=== PATIENT | female | born 1940 | race Caucasian/White ===

== ENCOUNTER 2022-12-30 13:06 | Observation (INO) ==
[2022-12-30 14:42] LABS: Basophils # (auto) 0.04 K/uL (0-0.2); Basophils % (auto) 0.3 %; Eosinophils # (auto) 0.48 K/uL (0-0.50); Hematocrit (blood only) 34.3 % (37.0-47.0); Hemoglobin 11.3 g/dl (12.0-16.0); Immature Granulocytes # (auto) 0.05 K/uL (0.01-0.20); Immature Granulocytes % (auto) 0.4 %; Lymphocytes # (auto) 1.06 K/uL (1.2-3.4); Lymphocytes % (auto) 8.8 %; Mean Corpuscular Hgb Conc 32.9 g/dL (32.0-36.0); Mean Corpuscular Volume 100.3 fL (80.0-100.0); Mean Platelet Volume 10.5 fL (9.4-12.4); Monocytes # (auto) 0.79 K/uL (0.11-0.59); Monocytes % (auto) 6.6 %; Neutrophils # (auto) 9.59 K/uL (1.40-6.50); Neutrophils % (auto) 79.9 %; Platelet Count 336 K/uL (130-400); RDW Coefficient of Variation 12.7 % (11.5-14.5); RDW Standard Deviation 46.5 fL (36.4-46.3); Red Blood Count 3.42 M/uL (4.20-5.40); White Blood Count 12.01 K/ul (4.8-10.8)
[2022-12-30 14:57] LABS: Albumin Globulin Ratio 1.3 (0.9-2); BUN Creatinine Ratio 30.6 (10-20); Bilirubin,Total 0.4 mg/dl (0.2-1.0); Calcium 9.6 mg/dl (8.6-10.3); Creatinine Clr Calc Pharmacy 28.1 ml/min; Est GFR (African American) 47.9 ml/min; Est GFR (Non-African American) 41.3 ml/min; Globulin 3.2 gm/dl (2.5-4.0); Total Protein 7.2 gm/dl (6.0-8.3)
[2022-12-30 15:07] LABS: Partial Thromboplastin Time 28.2 Seconds (21.0-31.0); Prothrombin Time 10.9 Seconds (9.0-12.0)
[2022-12-30 15:21] LABS: Troponin I High Sensitivity 79.9 pg/ml (0-14)
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
--- NOTE | 2022-12-30 16:00 | Electrocardiogram Report ---
Test Reason : Blood Pressure : / mmHG Vent. Rate : 070 BPM Atrial Rate : 070 BPM P-R Int : 136 ms QRS Dur : 120 ms QT Int : 414 ms P-R-T Axes : 047 063 044 degrees QTc Int : 447 ms Normal sinus rhythm Right bundle branch block Abnormal ECG No previous ECGs available Confirmed by Rocky Pimentel ([id number]) on 12/30/2022 3:59:59 PM Referred By: Confirmed By:Rocky Pimentel
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
[2022-12-30] MEDS ORDERED: ACETAMINOPHEN 325 MG TAB PO PRN (19:00)
[2022-12-30] MEDS ORDERED: ONDANSETRON INJ 2 MG/ML 2 ML VIAL IV PRN (19:00)
[2022-12-30] MEDS ORDERED: QUEtiapine FUMARATE 25 MG TABLET PO SCH (20:00)
[2022-12-30] MEDS ORDERED: SIMVASTATIN 40 MG TAB PO SCH (20:00)
[2022-12-30] MEDS: SODIUM CHLORIDE 0.9% 1000ML 1,000 ML IV SCH (20:28)
[2022-12-30] MEDS: CALCIUM CARBONATE 1250MG TAB PO SCH (20:51)
[2022-12-30] MEDS ORDERED: MIRTAZAPINE TAB 15 MG TAB PO SCH (21:00)
[2022-12-30] MEDS ORDERED: OPTIRAY 320 100ml IV ONE (22:00)
--- NOTE | 2022-12-30 23:27 | CT Scan Report ---
Exam(s): CT ABDOMEN + PELVIS With Contrast Oral - High Density Amt: GASTRO , IV Amt: 93ML EXAM: CT Abdomen and Pelvis With Intravenous Contrast CLINICAL HISTORY: Reason for exam: r/o colitis. TECHNIQUE: Axial computed tomography images of the abdomen and pelvis with intravenous contrast. CTDI is 10.46 mGy and DLP is 520.69 mGy-cm. Automated exposure control was utilized for the study. A dose lowering technique was utilized adhering to the principles of ALARA. CONTRAST: Patient received GASTRO of Oral - High Density and 93ML of IV contrast COMPARISON: No relevant prior studies available. FINDINGS: Lung bases: Atelectasis at the lung bases. ABDOMEN: Liver: Unremarkable. No mass. Gallbladder and bile ducts: Unremarkable. No calcified stones. No ductal dilation. Pancreas: Unremarkable. No mass. No ductal dilation. Spleen: Unremarkable. No splenomegaly. Adrenals: Unremarkable. No mass. Kidneys and ureters: Unremarkable. No hydronephrosis or delayed nephrogram. Stomach and bowel: Fluid-filled small bowel which is mildly better, correlate for mild enteritis/ileus. No obstruction. PELVIS: Appendix: No secondary signs of acute appendicitis. Bladder: Decompressed urinary bladder. Reproductive: Unremarkable as visualized. ABDOMEN and PELVIS: Intraperitoneal space: Mild free fluid in the pelvis. No free air. Bones/joints: Right hip ORIF. Degenerative changes of the spine. No acute fracture. No dislocation. Soft tissues: Unremarkable. Vasculature: Atherosclerotic changes of the aorta. No abdominal aortic aneurysm. Lymph nodes: Unremarkable. No enlarged lymph nodes. IMPRESSION: 1. No hydronephrosis or delayed nephrogram. 2. No secondary signs of acute appendicitis. 3. Mild free fluid in the pelvis. 4. Fluid-filled small bowel which is mildly better, correlate for mild enteritis/ileus. Electronically signed by: Rush Shrestha MD 12/30/22 23:26 PM
[2022-12-31 01:30] LABS: Adenovirus F 40/41 PCR Not Detected (NotDetected); Astrovirus PCR Not Detected (NotDetected); Campylobacter PCR Not Detected (NotDetected); Cryptosporidium PCR Not Detected (NotDetected); Cyclospora cayetanensis PCR Not Detected (NotDetected); Entamoeba histolytica PCR Not Detected (NotDetected); Enteroaggregative E.coli(EAEC) Not Detected (NotDetected); Enteropathogenic E.coli (EPEC) Not Detected (NotDetected); Enterotoxigenic E.coli (ETEC) Not Detected (NotDetected); Giardia lamblia PCR Not Detected (NotDetected); Norovirus GI/GII PCR Not Detected (NotDetected); Plesiomonas shigelloides PCR Not Detected (NotDetected); Rotavirus A PCR Not Detected (NotDetected); Salmonella PCR Not Detected (NotDetected); Sapovirus PCR Not Detected (NotDetected); Shiga-like Toxin E.coli (STEC) Not Detected (NotDetected); Shigella/Enteroinvasive E.coli Not Detected (NotDetected); Vibrio cholerae PCR Not Detected (NotDetected); Vibrio species PCR Not Detected (NotDetected); Yersinia enterocolitica PCR Not Detected (NotDetected)
[2022-12-31] MEDS ORDERED: LEVOTHYROXINE SODIUM 200 MCG TABLET PO SCH (06:30)
[2022-12-31 08:58] LABS: Appearance Urine Clear (Clear); Bilirubin Urine Negative (Negative); Blood Urine Negative (Negative); Color Urine Yellow; Glucose Urine UA Negative (Negative); Ketones Urine Negative (Negative); Leukocyte Esterase Urine 1+ (Negative); Nitrite Urine Negative (Negative); Protein Urine Negative (Negative); Specific Gravity Urine > 1.045 (1.000-1.030); Urobilinogen Urine Negative (Negative)
[2022-12-31] MEDS ORDERED: CHOLECALCIFEROL 1,000 UNITS 25 MCG TAB PO SCH (09:00)
[2022-12-31] MEDS ORDERED: lisinopril 5 MG TAB PO SCH (09:00)
[2022-12-31] MEDS ORDERED: PYRIDOXINE HCL 50 MG TAB PO SCH (09:00)
[2022-12-31] MEDS ORDERED: carBAMazepine 200 MG TABLET PO SCH (09:00)
[2022-12-31] MEDS ORDERED: MEMANTINE HCL 5 MG TAB PO SCH (09:00)
[2022-12-31] MEDS ORDERED: OXYBUTYNIN CHLORIDE XL 5 MG TABCR PO SCH (09:00)
[2022-12-31] MEDS ORDERED: SERTRALINE HCL 100 MG TABLET PO SCH (09:00)
[2022-12-31 09:13] LABS: Calcium Oxalate Crystals Urine Present (None Prsent); RBC Urine Automated 0-4 /hpf (0-4)
[2022-12-31 09:14] LABS: Bacteria Urine Automated 1+ (Negative)
--- NOTE | 2022-12-31 09:27 | Hospitalist Progress Note ---
Date of Service December 31, 2022 Assessment & Plan (1) Diarrhea: Plan: Two episodes of loose stool overnight. H/H stable. Hemodynamically stable. She has no evidence of GI bleeding. (2) Elevated troponin: (3) Syncope: Plan This is a 82-year-old female who has a significant past medical history of learning disability, mood disorder, depression with anxiety, dementia, HTN, HLD, hypothyroidism, history of colitis and vitamin D deficiency who presents to ED secondary to diarrhea x5 days. Diarrhea Leukocytosis admitted to telemetry-->no events overnight. staff at care home concerned due to diarrhea x 5 days as well as concern for possible noticing blood on bed pad this am. Stool culture is negative and she had only two episodes of soft stool here. Mg was replaced and will continue oral supplementation. K was 3.3 and replaced. Hemeoccult stool negative in ED No evidence of blood per rectum overnight Patient with chronic constipation at baseline on lactulose and Colace which has been on hold for the past 3 days Patient with history of colitis will obtain ct a/p. Some evidence of possible enteritis with unclear cause. Rehydrated overnight. Cont supportive care with Gatorade and other electrolyte rich drinks and oral rehydration. continue to hold lactulose and docusate Elevated troponin Patient without chest pain or shortness of breath EKG without ischemic findings Echo as noted above. Defer to PCP for any further workup for risk stratification of CAD as needed. Syncope One episode prior to arrival related to having a BM. Workup as above was unremarkable and a carotid ultrasound was unremarkable today. Per record review it does appear that this has been evaluated in the past Typically symptoms occur when straining with bowel movement, but staff at bedside states that she also had one recently that was at rest Previously followed [facility] neurology for the this There was concern about possible NPH due to MRI done that revealed ventriculomegaly She was evaluated by [facility] neurosurgery who felt symptoms are not consistent with NPH, but were to review further record Cont outpatient followup as planned. Bacteriuria/possible UTI uncertain if UTI may be playing a role. There is bacteruria present, however, patient is an unreliable historian. Will order a short course of cefdinir. Followup with primary care provider. Acute renal insufficiency unknown baseline cr bun/cr 37 and 1.21 with elevated ratio likely in setting of volume depletion with dehydration Rehydrated overnight with improvement in creatinine to 1.1. Cont staying hydrated until diarrheal illness resolves. She is tolerating PO. Anemia hgb 11. unknown etiology Iron saturation is 44%, no evidence of iron deficiency. Defer to outpatient followup. Intellectual delay Mood disorder Depression with anxiety Dementia Follows [facility] neurology continue carbamazepine, mirtazapine, quetiapine and sertraline Chronic, stable. Mentating at baseline. Hypertension Continue lisinopril Chronic, stable Hyperlipidemia Continue statin Chronic, stable DVT prophylaxis: SCDs Full code Dispo-return to home. Cont to stay hydrated. Follow-up with primary care physician in one week. I spent a total of 60minutes coordinating, documenting, and providing care for this patient excluding time spent in the performance of separately billed services Delma Bennett DO [place] Hospitalist Admission and Anticipated Discharge Date Admission Date: December 30, 2022 Subjective 82 yo F presents with report of diarrhea for several weeks and questionable blood in her stool. Today she feels ready to return home. She had two episodes of loose stool overnight that was checked and not infectious She remains afebrile Telemetry review overnight is unremarkable. She denies abdominal pain and is eating without issue. She remains hemodynamically stable. Elevated troponin without rise with trend overnight. Echo resulted with mild concentric LVH, no regional wall motion abnormalities, EF 65-70%, mild aortic valve sclerosis without significant aortic stenosis and grade I diastolic dysfunction. She continues to deny chest pain or shortness of breath. Electrolytes this morning revealed a Mg 1.6 and K 3.3. Replacement was given. Review of Systems Review of Systems: All systems were reviewed and negative except as indicated on subjective above. Physical Exam Physical Exam: CONSTITUTIONAL: WNWD, vitals as above, generally well-appearing, NAD EYES: normal conjunctivae, no scleral icterus ENT: external ear and nose normal, MMM NECK: trachea midline RESPIRATORY: clear to auscultation bilaterally, no crackles, rales or wheezes, normal respiratory effort CARDIOVASCULAR: regular rate and rhythm, S1 and 2 heard without murmurs, gallops or rubs, no JVD, no peripheral edema CHEST: inspection of chest was normal GASTROINTESTINAL: soft, nontender, ND, no guarding MUSCULOSKELETAL: strength 5/5 throughout, head is normocephalic and atraumatic SKIN: warm and dry NEUROLOGIC: CN 2-12 grossly intact, no sensory deficit, normal cognition, normal speech, no tremor PSYCHIATRIC: alert cooperative and oriented to person, place and time. Euthymic mood, makes good eye contact, language grossly intact, recent and remote memory grossly intact. Results & Data Results & Data Vital Signs (Past 12 Hours) Vital Signs Temp Pulse Pulse Resp BP Pulse Ox Pulse Ox 12/31/22 07:47 36.8 C 72 18 154/68 H 95 12/31/22 07:43 69 12/31/22 02:58 36.6 C 72 18 181/72 H 97 12/31/22 01:31 77 144/77 H 12/30/22 23:53 36.7 C 77 18 196/69 H 95 12/30/22 22:39 79 95 12/30/22 22:39 95 O2 Del Method O2 Del Method 12/31/22 07:47 Room Air 12/31/22 07:43 12/31/22 02:58 Room Air 12/31/22 01:31 12/30/22 23:53 Room Air 12/30/22 22:39 Room Air 12/30/22 22:39 Room Air Laboratory Results 12/31/22 12/30/22 12/30/22 Range/Units 08:41 23:45 23:45 WBC (4.8-10.8) K/ul RBC (4.20-5.40) M/uL Hgb (12.0-16.0) g/dl Hct (37.0-47.0) % MCV (80.0-100.0) fL MCH (25.0-34.0) pg MCHC (32.0-36.0) g/dL RDW Std Deviation (36.4-46.3) fL RDW Coeff of Cali (11.5-14.5) % Plt Count (130-400) K/uL MPV (9.4-12.4) fL Immature Gran % (Auto) % Neut % (Auto) % Lymph % (Auto) % Carbon % (Auto) % Eos % (Auto) % Baso % (Auto) % Neut # (Auto) (1.40-6.50) K/uL Lymph # (Auto) (1.2-3.4) K/uL Carbon # (Auto) (0.11-0.59) K/uL Eos # (Auto) (0-0.50) K/uL Baso # (Auto) (0-0.2) K/uL Immature Gran # (Auto) (0.01-0.20) K/uL PT (9.0-12.0) Seconds INR (0.9-1.1) APTT (21.0-31.0) Seconds PTT Ratio Sodium (136-145) mmol/L Potassium (3.5-5.1) mmol/L Chloride (98-107) mmol/L Carbon Dioxide (21-32) mmol/L Anion Gap (3-11) BUN (6-23) mg/dl Creatinine (0.6-1.2) mg/dl Est Cr Clr Drug Dosing ml/min Est GFR ( Amer) ml/min Est GFR (Non-Af Amer) ml/min BUN/Creatinine Ratio (10-20) Glucose (70-99(Fasting)) mg/dl Calcium (8.6-10.3) mg/dl Total Bilirubin (0.2-1.0) mg/dl AST (13-39) U/L ALT (7-52) U/L Alkaline Phosphatase (34-104) U/L Troponin I High Sens (0-14) pg/ml Total Protein (6.0-8.3) gm/dl Albumin (3.4-5.0) gm/dl Globulin (2.5-4.0) gm/dl Albumin/Globulin Ratio (0.9-2) Lipase (11-82) U/L Urine Color Yellow Urine Appearance Clear (Clear) Urine pH 5.0 (4.5-7.5) Ur Specific Dixon > 1.045 H (1.000-1.030) Urine Protein Negative (Negative) Urine Glucose (UA) Negative (Negative) Urine Ketones Negative (Negative) Urine Blood Negative (Negative) Urine Nitrite Negative (Negative) Urine Bilirubin Negative (Negative) Urine Urobilinogen Negative (Negative) Ur Leukocyte Esterase 1+ H (Negative) Urine WBC (Auto) 10-30 H (0-5) /hpf Urine RBC (Auto) 0-4 (0-4) /hpf U Hyaline Cast (Auto) 1-5 (0-5) /lpf U Epithel Cells (Auto) 10-20 H (0-5) /lpf Urine Bacteria (Auto) 1+ H (Negative) Calcium Oxalate Crystal Present A (None Prsent) Urine Yeast Not Reportable POC Stool Occult Blood (Negative) Stl C. cayetanensis PCR Not Detected (NotDetected) Stool Rotavirus A PCR Not Detected (NotDetected) Stl Adenov F 40/41 PCR Not Detected (NotDetected) Stool Astrovirus (PCR) Not Detected (NotDetected) Stool Campylobacter PCR Not Detected (NotDetected) Stl C. diff Tox B Gene Negative Cdiff Gene (Neg) Stool Cryptosporidium PCR Not Detected (NotDetected) Stl E.coli Shiga Tox PCR Not Detected (NotDetected) Stl Enterotoxigenic E PCR Not Detected (NotDetected) Stool EPEC (PCR) Not Detected (NotDetected) Stool EAEC (PCR) Not Detected (NotDetected) Stl E. histolytica PCR Not Detected (NotDetected) Stool Giardia Lamblia PCR Not Detected (NotDetected) Stool Salmonella PCR Not Detected (NotDetected) Stool Sapovirus (PCR) Not Detected (NotDetected) Stl P. shigelloides PCR Not Detected (NotDetected) Stl Shigella/EIEC PCR Not Detected (NotDetected) St Y.enterocolitica PCR Not Detected (NotDetected) Stool Vibrio (PCR) Not Detected (NotDetected) Stl Vibrio cholerae PCR Not Detected (NotDetected) Stl Norovirus GI/GII PCR Not Detected (NotDetected) SARS-CoV-2, RNA, NAAT (NEGATIVE) Blood Type Antibody Screen 12/30/22 12/30/22 12/30/22 Range/Units 23:22 17:24 17:05 WBC (4.8-10.8) K/ul RBC (4.20-5.40) M/uL Hgb (12.0-16.0) g/dl Hct (37.0-47.0) % MCV (80.0-100.0) fL MCH (25.0-34.0) pg MCHC (32.0-36.0) g/dL RDW Std Deviation (36.4-46.3) fL RDW Coeff of Cali (11.5-14.5) % Plt Count (130-400) K/uL MPV (9.4-12.4) fL Immature Gran % (Auto) % Neut % (Auto) % Lymph % (Auto) % Carbon % (Auto) % Eos % (Auto) % Baso % (Auto) % Neut # (Auto) (1.40-6.50) K/uL Lymph # (Auto) (1.2-3.4) K/uL Carbon # (Auto) (0.11-0.59) K/uL Eos # (Auto) (0-0.50) K/uL Baso # (Auto) (0-0.2) K/uL Immature Gran # (Auto) (0.01-0.20) K/uL PT (9.0-12.0) Seconds INR (0.9-1.1) APTT (21.0-31.0) Seconds PTT Ratio Sodium (136-145) mmol/L Potassium (3.5-5.1) mmol/L Chloride (98-107) mmol/L Carbon Dioxide (21-32) mmol/L Anion Gap (3-11) BUN (6-23) mg/dl Creatinine (0.6-1.2) mg/dl Est Cr Clr Drug Dosing ml/min Est GFR ( Amer) ml/min Est GFR (Non-Af Amer) ml/min BUN/Creatinine Ratio (10-20) Glucose (70-99(Fasting)) mg/dl Calcium (8.6-10.3) mg/dl Total Bilirubin (0.2-1.0) mg/dl AST (13-39) U/L ALT (7-52) U/L Alkaline Phosphatase (34-104) U/L Troponin I High Sens 95.6 H* D 78.9 H* (0-14) pg/ml Total Protein (6.0-8.3) gm/dl Albumin (3.4-5.0) gm/dl Globulin (2.5-4.0) gm/dl Albumin/Globulin Ratio (0.9-2) Lipase (11-82) U/L Urine Color Urine Appearance (Clear) Urine pH (4.5-7.5) Ur Specific Dixon (1.000-1.030) Urine Protein (Negative) Urine Glucose (UA) (Negative) Urine Ketones (Negative) Urine Blood (Negative) Urine Nitrite (Negative) Urine Bilirubin (Negative) Urine Urobilinogen (Negative) Ur Leukocyte Esterase (Negative) Urine WBC (Auto) (0-5) /hpf Urine RBC (Auto) (0-4) /hpf U Hyaline Cast (Auto) (0-5) /lpf U Epithel Cells (Auto) (0-5) /lpf Urine Bacteria (Auto) (Negative) Calcium Oxalate Crystal (None Prsent) Urine Yeast POC Stool Occult Blood (Negative) Stl C. cayetanensis PCR (NotDetected) Stool Rotavirus A PCR (NotDetected) Stl Adenov F 40/41 PCR (NotDetected) Stool Astrovirus (PCR) (NotDetected) Stool Campylobacter PCR (NotDetected) Stl C. diff Tox B Gene (Neg) Stool Cryptosporidium PCR (NotDetected) Stl E.coli Shiga Tox PCR (NotDetected) Stl Enterotoxigenic E PCR (NotDetected) Stool EPEC (PCR) (NotDetected) Stool EAEC (PCR) (NotDetected) Stl E. histolytica PCR (NotDetected) Stool Giardia Lamblia PCR (NotDetected) Stool Salmonella PCR (NotDetected) Stool Sapovirus (PCR) (NotDetected) Stl P. shigelloides PCR (NotDetected) Stl Shigella/EIEC PCR (NotDetected) St Y.enterocolitica PCR (NotDetected) Stool Vibrio (PCR) (NotDetected) Stl Vibrio cholerae PCR (NotDetected) Stl Norovirus GI/GII PCR (NotDetected) SARS-CoV-2, RNA, NAAT NEGATIVE (NEGATIVE) Blood Type Antibody Screen 12/30/22 12/30/22 12/30/22 Range/Units 15:39 14:28 14:28 WBC (4.8-10.8) K/ul RBC (4.20-5.40) M/uL Hgb (12.0-16.0) g/dl Hct (37.0-47.0) % MCV (80.0-100.0) fL MCH (25.0-34.0) pg MCHC (32.0-36.0) g/dL RDW Std Deviation (36.4-46.3) fL RDW Coeff of Cali (11.5-14.5) % Plt Count (130-400) K/uL MPV (9.4-12.4) fL Immature Gran % (Auto) % Neut % (Auto) % Lymph % (Auto) % Carbon % (Auto) % Eos % (Auto) % Baso % (Auto) % Neut # (Auto) (1.40-6.50) K/uL Lymph # (Auto) (1.2-3.4) K/uL Carbon # (Auto) (0.11-0.59) K/uL Eos # (Auto) (0-0.50) K/uL Baso # (Auto) (0-0.2) K/uL Immature Gran # (Auto) (0.01-0.20) K/uL PT 10.9 (9.0-12.0) Seconds INR 1.0 (0.9-1.1) APTT 28.2 (21.0-31.0) Seconds PTT Ratio 1.0 Sodium (136-145) mmol/L Potassium (3.5-5.1) mmol/L Chloride (98-107) mmol/L Carbon Dioxide (21-32) mmol/L Anion Gap (3-11) BUN (6-23) mg/dl Creatinine (0.6-1.2) mg/dl Est Cr Clr Drug Dosing ml/min Est GFR ( Amer) ml/min Est GFR (Non-Af Amer) ml/min BUN/Creatinine Ratio (10-20) Glucose (70-99(Fasting)) mg/dl Calcium (8.6-10.3) mg/dl Total Bilirubin (0.2-1.0) mg/dl AST (13-39) U/L ALT (7-52) U/L Alkaline Phosphatase (34-104) U/L Troponin I High Sens (0-14) pg/ml Total Protein (6.0-8.3) gm/dl Albumin (3.4-5.0) gm/dl Globulin (2.5-4.0) gm/dl Albumin/Globulin Ratio (0.9-2) Lipase (11-82) U/L Urine Color Urine Appearance (Clear) Urine pH (4.5-7.5) Ur Specific Dixon (1.000-1.030) Urine Protein (Negative) Urine Glucose (UA) (Negative) Urine Ketones (Negative) Urine Blood (Negative) Urine Nitrite (Negative) Urine Bilirubin (Negative) Urine Urobilinogen (Negative) Ur Leukocyte Esterase (Negative) Urine WBC (Auto) (0-5) /hpf Urine RBC (Auto) (0-4) /hpf U Hyaline Cast (Auto) (0-5) /lpf U Epithel Cells (Auto) (0-5) /lpf Urine Bacteria (Auto) (Negative) Calcium Oxalate Crystal (None Prsent) Urine Yeast POC Stool Occult Blood Negative (Negative) Stl C. cayetanensis PCR (NotDetected) Stool Rotavirus A PCR (NotDetected) Stl Adenov F 40/41 PCR (NotDetected) Stool Astrovirus (PCR) (NotDetected) Stool Campylobacter PCR (NotDetected) Stl C. diff Tox B Gene (Neg) Stool Cryptosporidium PCR (NotDetected) Stl E.coli Shiga Tox PCR (NotDetected) Stl Enterotoxigenic E PCR (NotDetected) Stool EPEC (PCR) (NotDetected) Stool EAEC (PCR) (NotDetected) Stl E. histolytica PCR (NotDetected) Stool Giardia Lamblia PCR (NotDetected) Stool Salmonella PCR (NotDetected) Stool Sapovirus (PCR) (NotDetected) Stl P. shigelloides PCR (NotDetected) Stl Shigella/EIEC PCR (NotDetected) St Y.enterocolitica PCR (NotDetected) Stool Vibrio (PCR) (NotDetected) Stl Vibrio cholerae PCR (NotDetected) Stl Norovirus GI/GII PCR (NotDetected) SARS-CoV-2, RNA, NAAT (NEGATIVE) Blood Type A Positive Antibody Screen NEGATIVE 12/30/22 12/30/22 Range/Units 14:28 14:28 WBC 12.01 H (4.8-10.8) K/ul RBC 3.42 L (4.20-5.40) M/uL Hgb 11.3 L (12.0-16.0) g/dl Hct 34.3 L (37.0-47.0) % MCV 100.3 H (80.0-100.0) fL MCH 33.0 (25.0-34.0) pg MCHC 32.9 (32.0-36.0) g/dL RDW Std Deviation 46.5 H (36.4-46.3) fL RDW Coeff of Cali 12.7 (11.5-14.5) % Plt Count 336 (130-400) K/uL MPV 10.5 (9.4-12.4) fL Immature Gran % (Auto) 0.4 % Neut % (Auto) 79.9 % Lymph % (Auto) 8.8 % Carbon % (Auto) 6.6 % Eos % (Auto) 4.0 % Baso % (Auto) 0.3 % Neut # (Auto) 9.59 H (1.40-6.50) K/uL Lymph # (Auto) 1.06 L (1.2-3.4) K/uL Carbon # (Auto) 0.79 H (0.11-0.59) K/uL Eos # (Auto) 0.48 (0-0.50) K/uL Baso # (Auto) 0.04 (0-0.2) K/uL Immature Gran # (Auto) 0.05 (0.01-0.20) K/uL PT (9.0-12.0) Seconds INR (0.9-1.1) APTT (21.0-31.0) Seconds PTT Ratio Sodium 141 (136-145) mmol/L Potassium 4.0 (3.5-5.1) mmol/L Chloride 110 H (98-107) mmol/L Carbon Dioxide 25 (21-32) mmol/L Anion Gap 6 (3-11) BUN 37 H (6-23) mg/dl Creatinine 1.21 H (0.6-1.2) mg/dl Est Cr Clr Drug Dosing 28.1 ml/min Est GFR ( Amer) 47.9 ml/min Est GFR (Non-Af Amer) 41.3 ml/min BUN/Creatinine Ratio 30.6 H (10-20) Glucose 91 (70-99(Fasting)) mg/dl Calcium 9.6 (8.6-10.3) mg/dl Total Bilirubin 0.4 (0.2-1.0) mg/dl AST 22 (13-39) U/L ALT 17 (7-52) U/L Alkaline Phosphatase 92 (34-104) U/L Troponin I High Sens 79.9 H* (0-14) pg/ml Total Protein 7.2 (6.0-8.3) gm/dl Albumin 4.0 (3.4-5.0) gm/dl Globulin 3.2 (2.5-4.0) gm/dl Albumin/Globulin Ratio 1.3 (0.9-2) Lipase 9 L (11-82) U/L Urine Color Urine Appearance (Clear) Urine pH (4.5-7.5) Ur Specific Dixon (1.000-1.030) Urine Protein (Negative) Urine Glucose (UA) (Negative) Urine Ketones (Negative) Urine Blood (Negative) Urine Nitrite (Negative) Urine Bilirubin (Negative) Urine Urobilinogen (Negative) Ur Leukocyte Esterase (Negative) Urine WBC (Auto) (0-5) /hpf Urine RBC (Auto) (0-4) /hpf U Hyaline Cast (Auto) (0-5) /lpf U Epithel Cells (Auto) (0-5) /lpf Urine Bacteria (Auto) (Negative) Calcium Oxalate Crystal (None Prsent) Urine Yeast POC Stool Occult Blood (Negative) Stl C. cayetanensis PCR (NotDetected) Stool Rotavirus A PCR (NotDetected) Stl Adenov F 40/41 PCR (NotDetected) Stool Astrovirus (PCR) (NotDetected) Stool Campylobacter PCR (NotDetected) Stl C. diff Tox B Gene (Neg) Stool Cryptosporidium PCR (NotDetected) Stl E.coli Shiga Tox PCR (NotDetected) Stl Enterotoxigenic E PCR (NotDetected) Stool EPEC (PCR) (NotDetected) Stool EAEC (PCR) (NotDetected) Stl E. histolytica PCR (NotDetected) Stool Giardia Lamblia PCR (NotDetected) Stool Salmonella PCR (NotDetected) Stool Sapovirus (PCR) (NotDetected) Stl P. shigelloides PCR (NotDetected) Stl Shigella/EIEC PCR (NotDetected) St Y.enterocolitica PCR (NotDetected) Stool Vibrio (PCR) (NotDetected) Stl Vibrio cholerae PCR (NotDetected) Stl Norovirus GI/GII PCR (NotDetected) SARS-CoV-2, RNA, NAAT (NEGATIVE) Blood Type Antibody Screen Medications Administered Current Inpatient Medications Acetaminophen (Acetaminophen 325 Mg Tab) 650 mg PO Q4H PRN PRN Reason: Pain or Fever Stop: 01/29/23 18:59 Calcium Carbonate (Calcium Carbonate 1250mg Tab) 500 mg PO TID [facility] Stop: 01/29/23 20:59 Last Admin: 12/30/22 20:51 Dose: 500 mg Carbamazepine (Carbamazepine 200 Mg Tablet) 200 mg PO DAILY [facility] Stop: 01/30/23 08:59 Carbamazepine (Carbamazepine 200 Mg Tabcr) 200 mg PO HS [facility] Stop: 01/29/23 21:29 Last Admin: 12/30/22 21:37 Dose: 200 mg Carbamazepine (Carbamazepine 100 Mg Tabcr) 100 mg PO HS [facility] Stop: 01/29/23 21:29 Last Admin: 12/30/22 21:37 Dose: 100 mg Sodium Chloride (Nss 1000ml) 1,000 mls @ 75 mls/hr IV .[id number] [facility] Stop: 12/31/22 21:39 Last Admin: 12/30/22 20:28 Dose: 75 mls/hr Lactobacillus Acidophilus (Advanced Probiotic 1250 Mg Capsule) 2 cap PO DAILY [facility] Stop: 01/30/23 09:29 Levothyroxine Sodium (Levothyroxine Sodium 200 Mcg Tablet) 200 mcg PO DAILY@0630 [facility] Stop: 01/30/23 06:29 Last Admin: 12/31/22 05:57 Dose: 200 mcg Lisinopril (Lisinopril 5 Mg Tab) 5 mg PO DAILY [facility] Stop: 01/30/23 08:59 Memantine (Memantine Hcl 5 Mg Tab) 5 mg PO QAM [facility] Stop: 01/30/23 08:59 Mirtazapine (Mirtazapine Tab 15 Mg Tab) 30 mg PO HS [facility] Stop: 01/29/23 20:59 Last Admin: 12/30/22 20:50 Dose: 30 mg Miscellaneous (Carbamazepine Er 300mg Capsules--Order Awaiting Action) 1 each N/A QS [facility] Stop: 01/30/23 00:00 Last Admin: 12/31/22 08:24 Dose: Not Given Ondansetron HCl (Ondansetron Inj 2 Mg/Ml 2 Ml Vial) 4 mg IV Q6H PRN PRN Reason: Nausea Stop: 01/29/23 18:59 Oxybutynin Chloride (Oxybutynin Chloride Xl 5 Mg Tabcr) 10 mg PO QAM [facility] Stop: 01/30/23 08:59 Pyridoxine HCl (Pyridoxine Hcl 50 Mg Tab) 50 mg PO DAILY [facility] Stop: 01/30/23 08:59 Quetiapine Fumarate (Quetiapine Fumarate 25 Mg Tablet) 25 mg PO DAILY@1999 [facility] Stop: 01/29/23 19:59 Last Admin: 12/30/22 20:50 Dose: 25 mg Sertraline HCl (Sertraline Hcl 100 Mg Tablet) 100 mg PO DAILY [facility] Stop: 01/30/23 08:59 Simvastatin (Simvastatin 40 Mg Tab) 40 mg PO DAILY@1999 [facility] Stop: 01/29/23 19:59 Last Admin: 12/30/22 20:49 Dose: 40 mg Vitamin D (Cholecalciferol 1,000 Units 25 Mcg Tab) 2,000 units PO DAILY [facility] Stop: 01/30/23 08:59
[2022-12-31] MEDS ORDERED: ADVANCED PROBIOTIC 1250 MG CAPSULE PO SCH (09:30)
[2022-12-31] MEDS: SODIUM CHLORIDE 0.9% 1000ML 1,000 ML IV SCH (09:47)
[2022-12-31] MEDS: CALCIUM CARBONATE 1250MG TAB PO SCH ×2 (09:48→14:52)
[2022-12-31 09:53] LABS: Basophils # (auto) 0.02 K/uL (0-0.2); Basophils % (auto) 0.2 %; Eosinophils # (auto) 0.45 K/uL (0-0.50); Eosinophils % (auto) 4.5 %; Hematocrit (blood only) 34.9 % (37.0-47.0); Hemoglobin 11.5 g/dl (12.0-16.0); Immature Granulocytes # (auto) 0.02 K/uL (0.01-0.20); Immature Granulocytes % (auto) 0.2 %; Lymphocytes # (auto) 1.05 K/uL (1.2-3.4); Lymphocytes % (auto) 10.4 %; Mean Platelet Volume 10.7 fL (9.4-12.4); Monocytes # (auto) 0.78 K/uL (0.11-0.59); Monocytes % (auto) 7.7 %; Neutrophils # (auto) 7.77 K/uL (1.40-6.50); Platelet Count 349 K/uL (130-400); RDW Coefficient of Variation 12.5 % (11.5-14.5); RDW Standard Deviation 45.7 fL (36.4-46.3); Red Blood Count 3.49 M/uL (4.20-5.40); White Blood Count 10.09 K/ul (4.8-10.8)
--- NOTE | 2022-12-31 10:06 | Hospitalist Progress Note ---
Date of Service December 31, 2022 Assessment & Plan (1) Diarrhea: (2) Elevated troponin: (3) Syncope: Plan This is a 82-year-old female who has a significant past medical history of learning disability, mood disorder, depression with anxiety, dementia, HTN, HLD, hypothyroidism, history of colitis and vitamin D deficiency who presents to ED secondary to diarrhea x5 days. Diarrhea Leukocytosis admit to medical staff at [facility] concerned due to diarrhea x 5 days as well as concern for possible noticing blood on bed pad this am. Heme negative in ED h/h 11.3 Patient with chronic constipation at baseline on lactulose and Colace which has been on hold for the past 3 days Patient continues to have loose stool No recent antibiotic use Obtain stool culture, C. difficile Patient with history of colitis will obtain ct a/p Symptoms may be in setting of stool softener use, but will rule out other etiology continue to hold lactulose and docusate Elevated troponin Patient without chest pain or shortness of breath EKG without ischemic findings Echocardiogram reviewed from June 2021 which revealed preserved EF, normal wall motion Cycle troponins, obtain echocardiogram Syncope Staff member at bedside reports frequent syncope in the past. Per record review it does appear that this has been evaluated in the past Typically symptoms occur when straining with bowel movement, but staff at [facility] states that she also had one recently that was at rest Previously followed [facility] neurology for the this There was concern about possible NPH due to MRI done that revealed ventriculomegaly She was evaluated by [facility] neurosurgery who felt symptoms are not consistent with NPH, but were to review further record We will keep on telemetry, obtain echocardiogram, obtain orthostatics and ca rotid Duplex Acute renal insufficiency unknown baseline cr bun/cr 37 and 1.21 with elevated ratio likely in setting of volume depletion with dehydration will give IVF x 2 L and re eval in a.m. Anemia hgb 11. unknown etiology will obtain anemia panel in a.m. Learning disability/MR Mood disorder Depression with anxiety Dementia Follows [facility] neurology continue carbamazepine, mirtazapine, quetiapine and sertraline Chronic, stable Hypertension Continue lisinopril Chronic, stable Hyperlipidemia Continue statin Chronic, stable DVT prophylaxis: SCDs for now due to concern for possible bleeding, initiate chemical prophylaxis if bleeding ruled out Full code Diet: Clears for now, will advance as tolerated, pt on soft easy to chew diet at baseline along with ensure bid and carnation instant bfast bid PCP: Bubba Iniguez Admission and Anticipated Discharge Date Admission Date: December 30, 2022 Subjective pt seen in follow up of diarrhea, elev. trop Results & Data Results & Data Vital Signs (Past 12 Hours) Vital Signs Temp Pulse Pulse Resp BP Pulse Ox Pulse Ox 12/31/22 07:47 36.8 C 72 18 154/68 H 95 12/31/22 07:43 69 12/31/22 02:58 36.6 C 72 18 181/72 H 97 12/31/22 01:31 77 144/77 H 12/30/22 23:53 36.7 C 77 18 196/69 H 95 12/30/22 22:39 79 95 12/30/22 22:39 95 O2 Del Method O2 Del Method 12/31/22 07:47 Room Air 12/31/22 07:43 12/31/22 02:58 Room Air 12/31/22 01:31 12/30/22 23:53 Room Air 12/30/22 22:39 Room Air 12/30/22 22:39 Room Air Laboratory Results Short CBC 12/30/22 12/31/22 Range/Units 14:28 09:37 WBC 12.01 H 10.09 (4.8-10.8) K/ul Hgb 11.3 L 11.5 L (12.0-16.0) g/dl Hct 34.3 L 34.9 L (37.0-47.0) % Plt Count 336 349 (130-400) K/uL BMP 12/30/22 14:28 Sodium 141 Potassium 4.0 Chloride 110 H Carbon Dioxide 25 BUN 37 H Creatinine 1.21 H Glucose 91 Calcium 9.6 Liver Function 12/30/22 Range/Units 14:28 Total Bilirubin 0.4 (0.2-1.0) mg/dl AST 22 (13-39) U/L ALT 17 (7-52) U/L Alkaline Phosphatase 92 (34-104) U/L Albumin 4.0 (3.4-5.0) gm/dl Urine 12/31/22 Range/Units 08:41 Urine Color Yellow Urine Appearance Clear (Clear) Urine pH 5.0 (4.5-7.5) Ur Specific [place] > 1.045 H (1.000-1.030) Urine Protein Negative (Negative) Urine Glucose (UA) Negative (Negative) Diagnostic Findings Abdomen/Pelvis CT 12/30/22 18:22 Exam(s): CT ABDOMEN + PELVIS With Contrast Oral - High Density Amt: GASTRO , IV Amt: 93ML EXAM: CT Abdomen and Pelvis With Intravenous Contrast CLINICAL HISTORY: Reason for exam: r/o colitis. TECHNIQUE: Axial computed tomography images of the abdomen and pelvis with intravenous contrast. CTDI is 10.46 mGy and DLP is 520.69 mGy-cm. Automated exposure control was utilized for the study. A dose lowering technique was utilized adhering to the principles of ALARA. CONTRAST: Patient received GASTRO of Oral - High Density and 93ML of IV contrast COMPARISON: No relevant prior studies available. FINDINGS: Lung bases: Atelectasis at the lung bases. ABDOMEN: Liver: Unremarkable. No mass. Gallbladder and bile ducts: Unremarkable. No calcified stones. No ductal dilation. Pancreas: Unremarkable. No mass. No ductal dilation. Spleen: Unremarkable. No splenomegaly. Adrenals: Unremarkable. No mass. Kidneys and ureters: Unremarkable. No hydronephrosis or delayed nephrogram. Stomach and bowel: Fluid-filled small bowel which is mildly better, correlate for mild enteritis/ileus. No obstruction. PELVIS: Appendix: No secondary signs of acute appendicitis. Bladder: Decompressed urinary bladder. Reproductive: Unremarkable as visualized. ABDOMEN and PELVIS: Intraperitoneal space: Mild free fluid in the pelvis. No free air. Bones/joints: Right hip ORIF. Degenerative changes of the spine. No acute fracture. No dislocation. Soft tissues: Unremarkable. Vasculature: Atherosclerotic changes of the aorta. No abdominal aortic aneurysm. Lymph nodes: Unremarkable. No enlarged lymph nodes. IMPRESSION: 1. No hydronephrosis or delayed nephrogram. 2. No secondary signs of acute appendicitis. 3. Mild free fluid in the pelvis. 4. Fluid-filled small bowel which is mildly better, correlate for mild enteritis/ileus. Electronically signed by: Rush Shrestha MD 12/30/22 23:26 PM Medications Administered Current Inpatient Medications Acetaminophen (Acetaminophen 325 Mg Tab) 650 mg PO Q4H PRN PRN Reason: Pain or Fever Stop: 01/29/23 18:59 Calcium Carbonate (Calcium Carbonate 1250mg Tab) 500 mg PO TID [facility] Stop: 01/29/23 20:59 Last Admin: 12/31/22 09:48 Dose: 500 mg Carbamazepine (Carbamazepine 200 Mg Tablet) 200 mg PO DAILY [facility] Stop: 01/30/23 08:59 Last Admin: 12/31/22 09:49 Dose: 200 mg Carbamazepine (Carbamazepine 200 Mg Tabcr) 200 mg PO HS [facility] Stop: 01/29/23 21:29 Last Admin: 12/30/22 21:37 Dose: 200 mg Carbamazepine (Carbamazepine 100 Mg Tabcr) 100 mg PO HS [facility] Stop: 01/29/23 21:29 Last Admin: 12/30/22 21:37 Dose: 100 mg Sodium Chloride (Nss 1000ml) 1,000 mls @ 75 mls/hr IV .[id number] [facility] Stop: 12/31/22 21:39 Last Admin: 12/31/22 09:47 Dose: Not Given Lactobacillus Acidophilus (Advanced Probiotic 1250 Mg Capsule) 2 cap PO DAILY [facility] Stop: 01/30/23 09:29 Levothyroxine Sodium (Levothyroxine Sodium 200 Mcg Tablet) 200 mcg PO DAILY@0630 [facility] Stop: 01/30/23 06:29 Last Admin: 12/31/22 05:57 Dose: 200 mcg Lisinopril (Lisinopril 5 Mg Tab) 5 mg PO DAILY [facility] Stop: 01/30/23 08:59 Last Admin: 12/31/22 09:49 Dose: 5 mg Memantine (Memantine Hcl 5 Mg Tab) 5 mg [facility] Stop: 01/30/23 08:59 Last Admin: 12/31/22 09:49 Dose: 5 mg Mirtazapine (Mirtazapine Tab 15 Mg Tab) 30 mg PO [facility] Stop: 01/29/23 20:59 Last Admin: 12/30/22 20:50 Dose: 30 mg Miscellaneous (Carbamazepine Er 300mg Capsules--Order Awaiting Action) 1 each N/A QS [facility] Stop: 01/30/23 00:00 Last Admin: 12/31/22 08:24 Dose: Not Given Ondansetron HCl (Ondansetron Inj 2 Mg/Ml 2 Ml Vial) 4 mg IV Q6H PRN PRN Reason: Nausea Stop: 01/29/23 18:59 Oxybutynin Chloride (Oxybutynin Chloride Xl 5 Mg Tabcr) 10 mg PO QAM [facility] Stop: 01/30/23 08:59 Last Admin: 12/31/22 09:49 Dose: 10 mg Pyridoxine HCl (Pyridoxine Hcl 50 Mg Tab) 50 mg PO DAILY [facility] Stop: 01/30/23 08:59 Last Admin: 12/31/22 09:49 Dose: 50 mg Quetiapine Fumarate (Quetiapine Fumarate 25 Mg Tablet) 25 mg PO DAILY@1999 [facility] Stop: 01/29/23 19:59 Last Admin: 12/30/22 20:50 Dose: 25 mg Sertraline HCl (Sertraline Hcl 100 Mg Tablet) 100 mg PO DAILY [facility] Stop: 01/30/23 08:59 Last Admin: 12/31/22 09:48 Dose: 100 mg Simvastatin (Simvastatin 40 Mg Tab) 40 mg PO DAILY@1999 [facility] Stop: 01/29/23 19:59 Last Admin: 12/30/22 20:49 Dose: 40 mg Vitamin D (Cholecalciferol 1,000 Units 25 Mcg Tab) 2,000 units PO DAILY [facility] Stop: 01/30/23 08:59 Last Admin: 12/31/22 09:49 Dose: 2,000 units
[2022-12-31 10:08] LABS: Albumin Level 3.9 gm/dl (3.4-5.0); Bilirubin,Total 0.3 mg/dl (0.2-1.0); Calcium 9.3 mg/dl (8.6-10.3); Magnesium 1.6 mg/dl (1.7-2.4); Potassium 3.3 mmol/L (3.5-5.1)
[2022-12-31 10:14] LABS: Albumin Globulin Ratio 1.2 (0.9-2); BUN Creatinine Ratio 25.9 (10-20); Creatinine Clr Calc Pharmacy 30.4 ml/min; Est GFR (African American) 52.6 ml/min; Est GFR (Non-African American) 45.4 ml/min; Globulin 3.2 gm/dl (2.5-4.0); Total Protein 7.1 gm/dl (6.0-8.3)
[2022-12-31 10:41] LABS: Folate (Folic Acid),Ser orPlas > 22.30 ng/ml (>5.38)
[2022-12-31 10:42] LABS: Vitamin B12 639 pg/ml (180-914)
[2022-12-31 10:55] LABS: Troponin I High Sensitivity 78.5 pg/ml (0-14)
[2022-12-31 11:04] LABS: Ferritin 119.9 ng/ml (8-388)
--- NOTE | 2022-12-31 11:05 | Ultrasound Report ---
ULTRASOUND OF THE CAROTID ARTERIES CLINICAL HISTORY: syncope COMPARISON: None available at the time of this dictation. TECHNIQUE: Real-time, grayscale, and color Doppler sonography of the carotid arteries is performed. I mages are reviewed in the transverse and longitudinal planes. FINDINGS: The carotid arteries are patent bilaterally and demonstrate antegrade flow. There is moderate atheros clerotic plaque on the right and moderate atherosclerotic plaque on the left. Normal doppler arterial waveforms are seen throughout. Velocity measurements are listed below. Common carotid peak systolic velocity (cm/sec): RIGHT: 78 LEFT: 121 ICA peak systolic velocity (cm/sec): RIGHT: 106 LEFT: 79 ICA/CC peak systolic ratio: RIGHT: 1.4 LEFT: 0.7 Antegrade flow was shown in the vertebral arteries. The external carotid arteries are patent. IMPRESSION: 1. There is no sonographic evidence of hemodynamically significant stenosis in the right or left car otid arterial system. Moderate atherosclerotic disease is seen. 2. Antegrade flow is shown in the vertebral arteries. Society of Radiologists in Ultrasound consensus guidelines: Normal: ICA PSV is <125 cm/sec and no plaque or intimal thickening is visible sonographically additional criteria include ICA/CCA PSV ratio <2.0 and ICA EDV <40 cm/sec <50% ICA stenosis: ICA PSV is <125 cm/sec and plaque or intimal thickening is visible sonographically additional criteria include ICA/CCA PSV ratio <2.0 and ICA EDV <40 cm/sec 50-69% ICA stenosis: ICA PSV is 125-230 cm/sec and plaque is visible sonographically additional criteria include ICA/CCA PSV ratio of 2.0-4.0 and ICA EDV of 40-100 cm/sec ?70% ICA stenosis but less than near occlusion: ICA PSV is >230 cm/sec and visible plaque and luminal narrowing are seen at yusuf-scale and color Dopp ler ultrasound (the higher the Doppler parameters lie above the threshold of 230 cm/sec, the greater the likelihood of severe disease) additional criteria include ICA/CCA PSV ratio >4 and ICA EDV >100 cm/sec ACT 112: Negative or not required by law. Electronically signed by: Herb Ryan M.D. 12/31/2022 11:03 AM
[2022-12-31] MEDS ORDERED: POTASSIUM CHLORIDE CRTAB 20 MEQ TABCR PO STA (11:50)
[2022-12-31] MEDS: MAGNESIUM SULFATE / D5W 1 GM/100 ML BAG IV SCH ×3 (12:03→16:21)
[2022-12-31] MEDS ORDERED: cefTRIAXone SODIUM 1,000 MG in DEXTROSE 5% AD-VAN 50 ML IV STA (13:36)
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
--- NOTE | 2022-12-31 15:48 | Electrocardiogram Report ---
Test Reason : Blood Pressure : / mmHG Vent. Rate : 069 BPM Atrial Rate : 069 BPM P-R Int : 164 ms QRS Dur : 118 ms QT Int : 422 ms P-R-T Axes : 068 068 051 degrees QTc Int : 452 ms Normal sinus rhythm Right bundle branch block Abnormal ECG When compared with ECG of 30-DEC-2022 14:18, No significant change was found Confirmed by Rocky Pimentel ([id number]) on 12/31/2022 3:48:13 PM Referred By: REFERRED SELF Confirmed By:Rocky Pimentel
== END 2022-12-31 18:45 | disposition home or self-care (01) ==
LOC: EDBD → ED 13:06 → EDINP 13:06 → SUATTDRO 16:56 → 2W 19:01